=== PATIENT | male | born 1975 | race Caucasian/White ===

== ENCOUNTER 2024-02-14 11:49 | Day surgery (SDC) | payer OTHER ==
[2024-02-12 10:26] LABS: Absolute Basophils 0.2 K/uL (0-0.5); Absolute Eosinophils 0.5 K/uL (0-0.5); Absolute Lymphocytes (CBC) 2.7 K/uL (0.7-4.9); Absolute Monocytes 0.6 K/uL (0.1-1.3); Absolute Neutrophil 3.7 K/uL (1.8-8.0); Eosinophils % 6.9 % (0-4.4); Hemoglobin 16.6 g/dL (13.6-17.9); Lymphocytes % 34.3 % (15.3-44.8); MCH 31.2 pg (27.0-35.0); MCHC 34.6 g/dL (32.0-36.0); MCV 90.2 fL (80-100); MPV 8.4 fL (7.6-11.3); Monocytes % 7.7 % (3.3-12.3); Neutrophils % 48.1 % (41.7-73.7); Nucleated Red Blood Cells % 0.1 % (0-0); Platelets 269 thou/uL (152-406); RBC Red Blood Cell Count 5.32 M/uL (4.33-5.43); Red Cell Distribution Width 12.9 % (12.1-15.2)
--- NOTE | 2024-02-12 16:29 | EKG ---
Test Date: 2024-02-12 Test Time: 09:55:47 Claims Adjudicator: MEASUREMENT RESULTS: Intervals: Rate: 62 TX: 142 QRSD: 98 QT: 414 QTc: 420 [place]: P: 23 TX: 142 QRS: 50 T: 22 INTERPRETIVE STATEMENTS: Normal sinus rhythm Minimal voltage criteria for LVH, may be normal variant Borderline ECG No previous ECG available for comparison Electronically Signed On 02-12-24 16:28:29 CDT by Damir Wesley
[2024-02-14] MEDS ORDERED: Ringers Lactate 1,000 ML IV ONE (11:59)
[2024-02-14] MEDS: CEFAZOLIN SODIUM 2 GM/VIAL ONE (12:44)
[2024-02-14] MEDS ORDERED: SUCCINYLCHOLINE 20 MG/ML (10 ML) IV ONE (13:04)
[2024-02-14] MEDS ORDERED: GLYCOPYRROLATE 0.2 MG/ML SYR ONE (13:11)
[2024-02-14] MEDS ORDERED: LIDOCAINE 2% MPF 5 ML VIAL ONE (13:11)
[2024-02-14] MEDS ORDERED: propofoL 200 MG/20 ML VIAL IV ONE ×2 (13:11→14:19)
[2024-02-14] MEDS ORDERED: NEOSTIGMINE 1 MG/ML -10 ML VIAL ONE (13:11)
[2024-02-14] MEDS ORDERED: MIDAZOLAM HCL 2 MG/2 ML INJ ONE (13:11)
[2024-02-14] MEDS ORDERED: ONDANSETRON 4 MG/2 ML VIAL ONE (13:11)
[2024-02-14] MEDS ORDERED: FENTANYL CITR 100 MCG/2 ML ONE (13:12)
[2024-02-14] MEDS ORDERED: ROCURONIUM 50 MG/5 ML VIAL IV ONE (13:14)
[2024-02-14] MEDS ORDERED: EPHEDRINE SULF 50 MG/ML VIAL ONE (13:47)
[2024-02-14] MEDS ORDERED: Phenylephrine HCl 10 MG/ML 1 ML VIAL ONE (13:50)
[2024-02-14] MEDS: LIDOCAINE HCL/EPINEPHRINE 20 ML MDV ONE (13:55)
[2024-02-14] MEDS ORDERED: KETOROLAC 30 MG/ML INJ ONE (14:04)
[2024-02-14] MEDS ORDERED: dexAMETHasone 4 MG/ML VIAL ONE (14:04)
[2024-02-14] MEDS: Ringers Lactate 1,000 ML IV ONE (14:10)
--- NOTE | 2024-02-14 14:20 | P.OP ---
Preoperative diagnosis: 3 Upper Back Epidermal Inclusion Cysts Postoperative diagnosis: 3 Upper Back Epidermal Inclusion Cysts Primary procedure: Wide Excision of 3 Upper Back Epidermal Inclusion Cysts Anesthesia: GETA + Local Estimated blood loss: <5cc Specimen: LEFT upper, Right upper, Central upper back cysts Findings: ~ 3x2cm LEFT, 2x1cm central, 6x4 cm RIGHT back cysts (into adipose) Complications: None Transferred to: Recovery Room Condition: Good
--- NOTE | 2024-02-14 15:00 | OP ---
Date of Procedure: 02/14/2024 Surgeon: Bert Crystal MD, Preoperative Diagnosis: Three upper back epidermal inclusion cyst. Postoperative Diagnosis: Three upper back epidermal inclusion cyst. Procedure Performed: Wide local excision of three upper back epidermal inclusion cyst. Anesthesia: General endotracheal plus local with 1% lidocaine with epinephrine. Estimated Blood Loss: Less than 5 cc. Specimens: 1.Left upper back epidermal inclusion cyst. 2.Right upper epidermal inclusion back cyst. 3.Central upper epidermal inclusion cyst of the back. Findings: 1.Approximately 3 cm x 2 cm left upper epidermal inclusion cyst of the back. 2.2 x 1 cm central epidermal inclusion cyst of the upper central back. 3.Right upper back epidermal inclusion cyst subtype 6 cm x 4 cm inside all 3 extended adipose tissue . Complications: None. Disposition: The patient was transferred to recovery room in good condition. Procedure In Detail: After informed consent was obtained, the patient was brought to the operating r oom, prepped and draped in the usual sterile fashion after adequate anesthesia was achieved. I anest hetized the area of all three cysts using 1% lidocaine with epinephrine. I made a circumferential in cision around these cysts and ultimately dissected down to subcutaneous tissues for the size describe d above using electrocautery, circumferentially dissecting out these cysts. The left upper and centr al upper back cyst were removed, sent off for pathologic examination. The area was copiously irrigat ed. Hemostasis was easily achieved with electrocautery and the wounds were closed using interrupted 3-0 nylon sutures and a sterile dressing was placed over top. The right upper back cyst was removed and sent off for pathologic examination. Hemostasis was achieved with electrocautery. The area was irrigated once again and the wound was partially reapproximated using interrupted 3-0 nylon sutures a nd a central portion was packed as there was murky fluid evident in the area with Vashe soaked dressi ng and a sterile dressing placed over top. The patient tolerated the procedure without incident or c omplication and transferred to PACU in good condition. All counts were correct at the end of the artemio e. TK/MODL Voice ID: [id number] Report ID: [id number]
[2024-02-14 16:36] VITALS: BP 129/77; TEMP 97.9; O2SAT 95
== END 2024-02-14 15:45 | disposition home or self-care (01) ==
LOC: OR 11:49
PROVIDERS: ATTEND Surgery
PROC: 0JB70ZZ Excision of Back Subcutaneous Tissue and Fascia, Open Approach (ICD-10-PCS; principal; 2024-02-14 14:15)
DX: L72.0 Epidermal cyst (principal)
CPT/HCPCS: 11403; 11402; 11406; 93005; 85025; 80048; 36415; 88304; J2704 ×2; J1100; J2710; J2001; J2250; J3010; J2405; J7120 ×2; J2371